=== PATIENT | male | born 1960 | race Caucasian/White ===

== ENCOUNTER 2016-07-07 13:37 | Outpatient (CLI) | payer OTHER ==
--- NOTE | 2016-07-07 14:21 | DIAGNOSTIC IMAGING REPORT ---
PROCEDURE: XR CHEST 2 VIEW INDICATION: Preop, cough. Initial encounter. TECHNIQUE: PA and lateral view. COMPARISON: None. FINDINGS: Lungs are clear. Cardiovascular structures are normal. Bony thorax is unremarkable. IMPRESSION: 1. Negative chest.
[2016-07-14] MEDS ORDERED: PRENATAL1 TAB PO (13:15)
[2016-07-14] MEDS ORDERED: TRAZODONE HCL50 MG PO (13:15)
[2016-07-14] MEDS ORDERED: IRON325 MG PO (13:15)
[2016-07-14] MEDS ORDERED: OMEPRAZOLE20 M1 PO (13:17)
[2016-07-14] MEDS ORDERED: CORGARD20 MG PO (13:18)
[2016-07-14] MEDS ORDERED: OXYCODONE HCL5 MG PO (13:26)
== END 2016-07-07 23:00 ==
LOC: XR SRH 13:37
DX: Z01.810 Encounter for preprocedural cardiovascular examination (principal); Z01.811 Encounter for preprocedural respiratory examination; Z01.812 Encounter for preprocedural laboratory examination; M23.92 Unspecified internal derangement of left knee
CPT/HCPCS: 90004; 90074; 90100; 92860; 94001; 94060; 95059

== ENCOUNTER 2016-07-18 08:20 | Day surgery (SDC) | payer OTHER ==
--- NOTE | 2016-07-07 19:21 | HISTORY AND PHYSICAL ---
ADMITTED: 07/18/2016 CHIEF COMPLAINT: 1. Left knee pain HISTORY OF PRESENT ILLNESS: The patient had chronic pain in his left knee. He had an injury to it with a medial meniscal tear as seen on his MRI scan. He is being admitted for an arthroscopic debridement of the knee and partial medial meniscectomy. The patient has been having increasing pain. He is pretty miserable with it now. He is having nonstop pain, which is worsened by ambulation or weightbearing and somewhat relieved with rest. The patient had a long discussion about having a possible knee replacement; but I prefer because he is relatively young and also because he has some other significant health problems that we do an arthroscopic debridement of the knee and, hopefully, we can give him some relief of his pain and avoid a larger procedure. I have discussed the procedure with him, showed him where the incisions would be. Discussed the risk of stiffness, of continued pain, of blood clots in the leg, of problems with bleeding, of infection, of anesthesia complications. He understands and accepts and would like to proceed with the surgery. We will plan to do it on 07/18/2016, barring unforeseen complication or problem. MEDICAL/SURGICAL HISTORY: Positive in that he has had some liver disease and GI bleeding. He had a GI bleed here just several weeks ago, needed a transfusion for the second time because of GI bleeding. We are going to be checking his PTT and INR before the surgery and postpone the surgery if they are not at appropriate levels, as well as a normal CBC, CMP, urinalysis. At this point, he is asymptomatic with respect to his liver disease. He has no more GI bleeding. He has not had any blood in his stools and feels well. He has also had problems with depression, with insomnia, with psoriasis, with hepatitis C, and with arthritis. He has had some chronic swelling in the lower extremities also which has been treated with an unknown water pill. He could not remember exactly what it was, but some type of water pill. MEDICATIONS: His current medications are: 1. Multivitamin. 2. Iron replacement. 3. Again, the water pill and nausea pills, which he cannot remember the names of. 4. He is also taking nadolol 20 mg daily. 5. Trazodone 50 mg at bedtime. 6. Omeprazole 40 mg b.i.d. 7. Oxycodone 5 mg 1 or 2 every 6 hours if needed for pain. ALLERGIES: 1. THE PATIENT HAS NO KNOWN ALLERGIES. SOCIAL HISTORY: He is a smoker, smokes about half a pack per day. FAMILY HISTORY: Noncontributory. PHYSICAL EXAMINATION: VITAL SIGNS: Height of 71 inches. Weight of 166 with BMI 23. Blood pressure 110 /74, pulse 73, respirations 16, temperature 98.4. HEENT: His head is normocephalic and atraumatic. His eyes are clear. His ears show the hearing to be grossly normal. He has no drainage from the ear canals. The face is symmetrical. NECK: He has no jugular venous distention. HEART: Regular rate and rhythm without murmur. LUNGS: Clear to auscultation. ABDOMEN: Flat. EXTREMITIES: Knee: I will refer you to my previous knee exams, but he does have a medial meniscal tear. LAB/IMAGING: His x-rays look pretty good with the joint spaces still relatively well preserved. IMPRESSION: 1. Medial meniscal tear with osteoarthritis of the left knee. PLAN: The plan will be for knee arthroscopy as noted above.
[~2016-07-18] VITALS: Ht 182.9 cm; Wt 72.1 kg
[~2016-07-18 08:20] MED LIST: CORGARD20 MG PO; IRON325 MG PO; OMEPRAZOLE20 M1 PO; OXYCODONE HCL5 MG PO; PRENATAL1 TAB PO; TRAZODONE HCL50 MG PO
--- NOTE | 2016-07-18 12:39 | Postoperative Progress Note ---
Postop Progress Note Preoperate Diagnosis: OA, MMT Left knee Postoperative Diagnosis: Same Surgeon: Antony Durham MD Anesthesia: General ETT Findings: OA, MMT left knee Procedure: Left knee scope with chondroplasty and partial medial meniscectomy. Complications? No Condition: Stable EBL: 5cc Blood Administered: 0 Specimen(s) removed? No Grafts or Implants? No . (See nursing notes for details of grafts/implants)
[2016-07-18] MEDS ORDERED: OXAYDO5 MG PO (12:45)
--- NOTE | 2016-07-18 12:46 | Provider's Discharge Care Plan ---
Problem, Goal, Plan Problem List 1. Osteoarthritis of left knee 2. Medial meniscus tear
--- NOTE | 2016-07-18 12:46 | Provider's Discharge Care Plan ---
Problem, Goal, Plan Problem List 1. Osteoarthritis of left knee 2. Medial meniscus tear
--- NOTE | 2016-07-18 13:38 | OPERATIVE REPORT ---
DATE OF SURGERY: 07/18/2016 SURGEON: ASHLEIGH MADDEN MD PREOPERATIVE DIAGNOSIS: 1. Medial meniscal tear and osteoarthritis of the left knee POSTOPERATIVE DIAGNOSIS: 1. Medial meniscal tear and osteoarthritis of the left knee PROCEDURE PERFORMED: The operation proposed was left knee arthroscopy, partial medial meniscectomy, chondroplasty and operation performed the same. ESTIMATED BLOOD LOSS: Less than 5 mL. COMPLICATIONS: None. PATHOLOGY SPECIMEN: None. DESCRIPTION OF PROCEDURE: The patient was taken to the operating room, where he was given a general anesthetic. A tourniquet applied to the left thigh. His leg was placed in a leg loyd. It was then prepped and draped in the usual sterile fashion and 2 small incisions were made at the joint line starting at the lateral side I put the scope and looked over the medial side. I could immediately see he had a fairly large flap on the lateral side of the medial femoral condyle in the weightbearing area and then there is an area of fraying anteriorly as well. He also had a tear of the posterior horn of the medial meniscus. This was suspected from his preoperative MRI. When looked at the central notch and the anterior cruciate ligament was in good condition. It was probed and found to be intact and without disruption. We went to the lateral side, there were some minor irregularities of the joint surfaces and some little just minor fraying of the anterior margin of the lateral meniscus, but it was probed and found to be intact and no detachment or other damage was seen. We went to the patellofemoral joint and here the patient had significant arthritic changes with complete loss of the articular cartilage over the major portion of the superior and lateral aspect of the patella and some marked fraying of the remaining articular cartilage so there really was little normal cartilage that was left. We put our shaver in and shaved away the flap of cartilage on the medial femoral condyle and then trimmed and smoothed the margins of the medial meniscus using the same shaver. I then went to the patella and smoothed it off with the shaver as best as possible, but again there is cartilage loss down to bone on both the medial femoral condyle and on the major portion of the patella. Again, after smoothing the surfaces, we washed out the knee thoroughly and removed the scope and instruments. Closed the incisions with 3-0 nylon interrupted simple sutures, injected him with a combination 0.5 percent Marcaine with epinephrine and 80 mg of Depo-Medrol and he was dressed with Xeroform and ABD pads, wrapped with a sterile Webril, and Kwesi bandage loosely applied and then awakened and taken to the recovery room in stable condition.
[2016-07-18 14:37] VITALS: BP 113/80
== END 2016-07-18 15:14 | disposition home or self-care (01) ==
LOC: SDC SRH 08:20 → SCU SRH 08:21 → SDC SRH 10:00 → OR SRH 11:30 → SDC SRH 15:14
PROVIDERS: Orthopaedic Surgery
PROC: 0SBD4ZZ Excision of Left Knee Joint, Percutaneous Endoscopic Approach (ICD-10-PCS; principal; 2016-07-18 10:00)
DX: M23.222 Derangement of posterior horn of medial meniscus due to old tear or injury, left knee (principal); M17.12 Unilateral primary osteoarthritis, left knee; Z72.0 Tobacco use
CPT/HCPCS: 29240; 50002; 60001; 70002; 80118; 80143; 80144; 80212; 80575; 83413; 84044; 90001; 90074; 90155; 91004

== ENCOUNTER 2016-10-09 09:06 | Outpatient (CLI) | payer OTHER ==
[~2016-10-09 09:06] MED LIST changes: +OXAYDO5 MG PO
--- NOTE | 2016-10-09 12:15 | DIAGNOSTIC IMAGING REPORT ---
PROCEDURE: MR LTD LOWER EXT JOINT-LEFT INDICATION: Palacio and Nephew protocol for preop knee replacement. TECHNIQUE: Limited MRI of the knee was performed with high-resolution PD sagittal images. In addition, AP radiographs of the lower extremity were obtained with scanogram markers. Diagnostic interpretation is not provided. IMPRESSION: 1. Preoperative Palacio and Nephew protocol for knee prosthesis.
== END 2016-10-09 23:00 ==
LOC: MRI SRH 09:06
DX: M17.11 Unilateral primary osteoarthritis, right knee (principal)

== ENCOUNTER 2016-11-16 11:58 | Outpatient (CLI) | payer OTHER ==
--- NOTE | 2016-11-16 13:11 | DIAGNOSTIC IMAGING REPORT ---
PROCEDURE: XR HUMERUS - RIGHT INDICATION: FX OF PROXIMAL HUMERUS TECHNIQUE: AP and lateral views. COMPARISON: None. FINDINGS: Complete impacted fracture through the right humeral neck. IMPRESSION: 1. Complete impacted fracture through the right humeral neck.
--- NOTE | 2016-11-16 13:39 | DIAGNOSTIC IMAGING REPORT ---
PROCEDURE: XR ELBOW 3 OR 4 VIEWS - RIGHT INDICATION: ELBOW FX TECHNIQUE: Four views. COMPARISON: None. FINDINGS: Osseous structures and joint spaces are normal. No evidence of an effusion. IMPRESSION: 1. Normal right elbow.
== END 2016-11-16 23:00 ==
LOC: XR SRH 11:58
DX: Z01.818 Encounter for other preprocedural examination (principal); Z01.812 Encounter for preprocedural laboratory examination; S42.401A Unspecified fracture of lower end of right humerus, initial encounter for closed fracture